=== PATIENT | male | born 1990 | race Caucasian/White ===

== ENCOUNTER 2017-10-25 14:01 | Emergency (ER) | payer OTHER ==
[~2017-10-25] VITALS: Ht 172.7 cm; Wt 72.6 kg
[2017-10-25 14:08] VITALS: BP 128/91
[2017-10-25] MEDS ORDERED: NAPROSYN500 MG PO (14:11)
[2017-10-25] MEDS ORDERED: NORCO 10-325 T1 EACH PO (14:30)
== END 2017-10-25 14:57 | disposition home or self-care (01) ==
LOC: ER 14:01
DX: M75.102 Unspecified rotator cuff tear or rupture of left shoulder, not specified as traumatic (principal); F17.210 Nicotine dependence, cigarettes, uncomplicated

== ENCOUNTER 2018-06-16 13:03 | Emergency (ER) | payer OTHER ==
[~2018-06-16] VITALS: Ht 175.3 cm; Wt 74.8 kg
[~2018-06-16 13:03] MED LIST: NAPROSYN500 MG PO; NORCO 10-325 T1 EACH PO
[2018-06-16 13:16] VITALS: BP 128/82
[2018-06-16] MEDS ORDERED: MOBIC7.5 MG PO (14:16)
== END 2018-06-16 14:39 | disposition home or self-care (01) ==
LOC: ER 13:03
DX: S46.812A Strain of other muscles, fascia and tendons at shoulder and upper arm level, left arm, initial encounter (principal); W22.8XXA Striking against or struck by other objects, initial encounter; Y92.89 Other specified places as the place of occurrence of the external cause; Y93.89 Activity, other specified; Y99.8 Other external cause status